=== PATIENT | female | born 1945 | race Caucasian/White ===

== ENCOUNTER 2022-07-24 17:37 | Observation (INO) | payer MEDICARE ==
[2022-07-24 18:12] LABS: #Basophils 0.1 thou/uL (0.0-0.2); #Eosinphils 0.4 thou/uL (0.0-0.7); #Lymphocytes 3.7 thou/uL (1.20-3.40); #Neutrophils 3.4 thou/uL (1.40-6.50); %Basophils 1.6 % (0.0-1.0); %Eosinophils 5.1 % (0.0-10.0); %Neutrophils 39.3 % (42.0-75.0); Hemoglobin 15.1 g/dL (12.0-16.0); Mean Corpuscular Hemoglobin 30.7 pg (27.0-31.0); Mean Corpuscular Volume 93.2 fl (78.0-98.0); Mean Platelet Volume 7.4 fL (7.4-10.4); Platelet Count 202 10x3/uL (130-400); RBC Distribution Width 13.3 % (11.5-14.5); Red Blood Cell (RBC) Count 4.92 mill/uL (4.20-5.40); White Blood Cell (WBC) Count 8.6 10x3/uL (4.8-10.8)
[2022-07-24 18:24] LABS: ALT (SGPT) 18 U/L (8-55); AST (SGOT) 37 U/L (5-34); Alkaline Phosphatase 73 U/L (40-110); Anion Gap 15 mmol/L (10-20); BUN (Urea Nitrogen) 14 mg/dL (9.8-20.1); Bilirubin, Total 0.5 mg/dL (0.2-1.2); Calc. Creatinine Clearance 0 mL/min (70-130); Calcium 9.3 mg/dL (7.8-10.44); Carbon Dioxide 29 mmol/L (23-31); Chloride 103 mmol/L (98-107); Estimated GFR 71; Globulin 3.3 g/dL (2.4-3.5); Glucose 108 mg/dL (83-110); Potassium 3.6 mmol/L (3.5-5.1); Protein, Total 7.3 g/dL (5.8-8.1); Sodium 143 mmol/L (136-145)
[2022-07-24 19:29] LABS: SARS-CoV-2 NAA Rapid Test Not Detected (NotDetected)
[2022-07-24] MEDS ORDERED: Oseltamivir 75 MG CAP ONE (20:01)
[2022-07-24] MEDS ORDERED: Acetaminophen 325 MG TAB ONE (20:01)
[2022-07-24] MEDS ORDERED: Dexamethasone 10 MG/ML VIAL ONE (20:01)
[2022-07-24] MEDS: Sodium Chloride 0.9% 1,000 ML IV SCH (21:15)
[2022-07-24] MEDS ORDERED: Ondansetron ODT 4 MG TAB SL PRN (21:45)
[2022-07-24] MEDS ORDERED: Ondansetron PF 4 MG/2 ML Vial IVP PRN (21:45)
[2022-07-24] MEDS ORDERED: Acetaminophen 325 MG TAB PO PRN (21:45)
[2022-07-24 22:22] VITALS: BMI 39.1
[2022-07-25] MEDS: Sodium Chloride 0.9% 1,000 ML IV SCH (03:14)
[2022-07-25] MEDS ORDERED: Levothyroxine Sodium 50 MCG TAB PO SCH (06:00)
[2022-07-25] MEDS ORDERED: Albuterol Sulfate 2.5 mg/3 ml Neb NEB PRN (07:34)
[2022-07-25] MEDS ORDERED: Carvedilol 3.125 MG TAB PO SCH (09:00)
[2022-07-25] MEDS ORDERED: Nystatin Powder 15 GM BOT TOP SCH (09:00)
[2022-07-25] MEDS ORDERED: Furosemide 20 MG TAB PO SCH (09:00)
[2022-07-25] MEDS ORDERED: Oseltamivir 75 MG CAP PO SCH (09:00)
[2022-07-25] MEDS ORDERED: Mometasone/Formoterol 60 PUFF AER INH SCH (09:00)
[2022-07-25] MEDS ORDERED: Potassium Chloride 20 MEQ TAB PO SCH (09:00)
[2022-07-25] MEDS ORDERED: Aspirin 81 mg Enteric Coated Tablet PO SCH (09:00)
[2022-07-25 15:33] VITALS: BP 107/70; TEMP 98.8
[2022-07-25] MEDS ORDERED: Donepezil HCl 10 MG TAB PO SCH (21:00)
[2022-07-25] MEDS ORDERED: Rosuvastatin 10 MG TAB PO SCH (21:00)
== END 2022-07-25 16:20 | disposition home or self-care (01) ==
LOC: BURERS 17:37 → INTOOBSV 20:04 → BURMED 20:04
PROVIDERS: ADMIT Family Medicine; ATTEND Nurse Practitioner
DX: R09.02 Hypoxemia (principal); J10.1 Influenza due to other identified influenza virus with other respiratory manifestations; J44.0 Chronic obstructive pulmonary disease with (acute) lower respiratory infection; J20.9 Acute bronchitis, unspecified; B37.2 Candidiasis of skin and nail; E03.9 Hypothyroidism, unspecified; E78.00 Pure hypercholesterolemia, unspecified; I10 Essential (primary) hypertension; I25.10 Atherosclerotic heart disease of native coronary artery without angina pectoris; Z87.891 Personal history of nicotine dependence; Z79.890 Hormone replacement therapy; Z79.82 Long term (current) use of aspirin; Z79.899 Other long term (current) drug therapy; Z88.0 Allergy status to penicillin; Z88.2 Allergy status to sulfonamides; Z20.822 Contact with and (suspected) exposure to COVID-19
CPT/HCPCS: 36415; 71045; 80053; 83605; 83880; 84484; 85025; 87040; 93005; 94664; 94760; 96374; G0378; J1100; J7050; J7620

== ENCOUNTER 2024-05-18 12:21 | Observation (INO) | payer MEDICARE ==
[~2024-05-18 12:21] MED LIST: Iopamidol 370 76% 100 ML VIAL ONE
[2024-05-18 12:46] LABS: #Basophils 0.1 thou/uL (0.0-0.2); #Eosinphils 0.3 thou/uL (0.0-0.7); #Lymphocytes 4.2 thou/uL (1.20-3.40); #Monocytes 0.6 thou/uL (0.11-0.59); #Neutrophils 5.7 thou/uL (1.40-6.50); %Basophils 0.9 % (0.0-1.0); %Eosinophils 2.7 % (0.0-10.0); %Lymphocytes 38.5 % (21.0-51.0); %Monocytes 5.9 % (0.0-10.0); %Neutrophils 51.9 % (42.0-75.0); Hematocrit 47.2 % (36.0-47.0); Hemoglobin 14.5 g/dL (12.0-16.0); Mean Corpuscular HGB CONC 30.8 g/dL (32.0-36.0); Mean Corpuscular Hemoglobin 29.2 pg (27.0-31.0); Mean Corpuscular Volume 94.9 fl (78.0-98.0); Platelet Count 211 10x3/uL (130-400); Red Blood Cell (RBC) Count 4.98 mill/uL (4.20-5.40); White Blood Cell (WBC) Count 10.9 10x3/uL (4.8-10.8)
[2024-05-18 12:57] LABS: PTT 29.3 sec (22.9-36.1)
[2024-05-18 13:08] LABS: ALT (SGPT) 17 U/L (8-55); AST (SGOT) 18 U/L (5-34); Albumin 3.4 g/dL (3.4-4.8); Alkaline Phosphatase 66 U/L (40-110); Anion Gap 16 mmol/L (10-20); BUN (Urea Nitrogen) 17 mg/dL (9.8-20.1); Bilirubin, Total 0.5 mg/dL (0.2-1.2); Calc. Creatinine Clearance 0 mL/min (70-130); Calcium 9.4 mg/dL (7.8-10.44); Carbon Dioxide 29 mmol/L (23-31); Chloride 100 mmol/L (98-107); Estimated GFR 68; Globulin 3.6 g/dL (2.4-3.5); Glucose 192 mg/dL (83-110); Lipase 43 U/L (8-78); Potassium 4.4 mmol/L (3.5-5.1); Sodium 141 mmol/L (136-145)
[2024-05-18 13:11] LABS: Troponin I Less than 0.010 ng/mL (< 0.028)
[2024-05-18 16:08] LABS: Troponin I Less than 0.010 ng/mL (< 0.028)
[2024-05-18 20:12] VITALS: BMI 45.6
[2024-05-18] MEDS ORDERED: Senokot S 8.6-50 MG TAB PO PRN (20:42)
[2024-05-18] MEDS ORDERED: Loperamide HCl 2 MG CAP PO PRN (20:42)
[2024-05-18] MEDS ORDERED: Acetaminophen 325 MG TAB PO PRN (20:42)
[2024-05-18] MEDS ORDERED: Ondansetron ODT 4 MG TAB PO PRN (20:42)
[2024-05-18] MEDS: Ondansetron PF 4 MG/2 ML Vial ONE (21:04)
[2024-05-18] MEDS: Ipratropium/Albuterol 3 ML NEB ONE (21:04)
[2024-05-18] MEDS: Morphine 2 MG/ML VIAL ONE (21:04)
[2024-05-18] MEDS: methylPREDNISolone Sod Succ/PF 125 MG/2 ML VIAL ONE (21:05)
[2024-05-18] MEDS: Carvedilol 3.125 MG TAB PO SCH (22:12)
[2024-05-18] MEDS: Famotidine 20 MG TAB PO SCH (22:12)
[2024-05-18] MEDS: Rosuvastatin 10 MG TAB PO SCH (22:13)
[2024-05-18] MEDS: Donepezil HCl 10 MG TAB PO SCH (22:13)
[2024-05-18] MEDS: Enoxaparin 40 MG (0.4 mL) SYRINGE SC SCH (22:13)
[2024-05-18] MEDS: methylPREDNISolone Sod Succ 40 MG VIAL IVP SCH (22:46)
[2024-05-18] MEDS: Albuterol 2.5 MG (3 mL) NEB NEB SCH (22:47)
[2024-05-19] MEDS: Ipratropium Bromide 2.5 ml Neb NEB SCH (00:57)
[2024-05-19] MEDS: HYDROcodone/Acetaminophen 5/325 mg Tablet PO PRN (02:45)
[2024-05-19 05:08] LABS: Hematocrit 43.6 % (36.0-47.0); Lymphocytes 19 % (21-51); MDiff Complete? YES; Mean Corpuscular HGB CONC 29.9 g/dL (32.0-36.0); Mean Corpuscular Hemoglobin 28.8 pg (27.0-31.0); Mean Corpuscular Volume 96.5 fl (78.0-98.0); Mean Platelet Volume 6.9 fL (7.4-10.4); Monocytes 2 % (0-10); Neutrophil 79 % (42-75); Platelet Count 187 10x3/uL (130-400); RBC Distribution Width 13.2 % (11.5-14.5); Red Blood Cell (RBC) Count 4.51 mill/uL (4.20-5.40); White Blood Cell (WBC) Count 10.3 10x3/uL (4.8-10.8)
[2024-05-19 05:30] LABS: Anion Gap 21 mmol/L (10-20); BUN (Urea Nitrogen) 21 mg/dL (9.8-20.1); Calc. Creatinine Clearance 82 mL/min (70-130); Calcium 8.8 mg/dL (7.8-10.44); Carbon Dioxide 22 mmol/L (23-31); Chloride 102 mmol/L (98-107); Estimated GFR 51; Glucose 364 mg/dL (83-110); Potassium 4.8 mmol/L (3.5-5.1); Sodium 140 mmol/L (136-145)
[2024-05-19] MEDS: Levothyroxine Sodium 50 MCG TAB PO SCH (05:38)
[2024-05-19] MEDS ORDERED: Glucagon 1 MG/ML KIT IM PRN (07:27)
[2024-05-19] MEDS ORDERED: Dextrose 50% Abboject 50 ML SYRINGE SLOW IVP PRN (07:27)
[2024-05-19] MEDS ORDERED: Dextrose 5% in Water 1,000 ML IV PRN (07:27)
[2024-05-19] MEDS ORDERED: Iopamidol 370 76% 100 ML VIAL ONE (07:57)
[2024-05-19] MEDS: Cyanocobalamin (Vitamin B-12) 1,000 MCG TAB PO SCH (08:09)
[2024-05-19] MEDS: Furosemide 20 MG TAB PO SCH (08:09)
[2024-05-19] MEDS: Aspirin 81 mg Enteric Coated Tablet PO SCH (08:09)
[2024-05-19] MEDS: Losartan 25 MG TAB PO SCH (08:09)
[2024-05-19] MEDS: Potassium Chloride 20 MEQ TAB PO SCH (08:10)
[2024-05-19] MEDS: Cholecalciferol (Vitamin D3) 5,000 UNITS CAPSULE PO SCH (10:36)
[2024-05-19] MEDS: Sodium Chloride 0.9% 1,000 ML IV SCH (10:38)
[2024-05-19] MEDS: HumaLOG 300 UNITS/3 ML VIAL SC PRN (11:32)
[2024-05-19 12:12] LABS: Hemoglobin A1c 6.7 % (4.0-6.0)
[2024-05-19 17:14] VITALS: BP 130/64
[2024-05-19 18:51] VITALS: TEMP 98
[2024-05-22] MEDS ORDERED: FLU (Fluad Triv) TS24-25 (65UP)/MF59C/PF 45 MCG/0.5 ML Syringe IM ONE (01:15)
== END 2024-05-19 18:40 | disposition home or self-care (01) ==
LOC: BURERS 12:21 → BURMED 18:25
PROVIDERS: ADMIT Family Medicine; ATTEND Family Medicine
DX: R09.02 Hypoxemia (principal); J44.9 Chronic obstructive pulmonary disease, unspecified; R10.12 Left upper quadrant pain; I11.0 Hypertensive heart disease with heart failure; I50.9 Heart failure, unspecified; R73.9 Hyperglycemia, unspecified; E03.9 Hypothyroidism, unspecified; E78.5 Hyperlipidemia, unspecified; I25.10 Atherosclerotic heart disease of native coronary artery without angina pectoris; F03.90 Unspecified dementia, unspecified severity, without behavioral disturbance, psychotic disturbance, mood disturbance, and anxiety; Z90.49 Acquired absence of other specified parts of digestive tract; Z90.89 Acquired absence of other organs; Z95.5 Presence of coronary angioplasty implant and graft; Z96.653 Presence of artificial knee joint, bilateral; Z79.899 Other long term (current) drug therapy; Z79.82 Long term (current) use of aspirin; Z79.890 Hormone replacement therapy
CPT/HCPCS: 71045; 71275; 74177; 80048; 82962 ×2; 83036; 83690; 84484 ×2; 85025; 85379; 85610; 85730; 87428; 94640 ×2; 96374; 96375; 96376; 99285; G0378 ×2; J1650; J2272; J2405; J2919 ×3; J7030; J7644; Q9967 ×2; 36415; 36416; 80053; 84443; J1815; J7611; J7620

== ENCOUNTER 2025-03-24 19:35 | Emergency (ER) | payer MEDICARE ==
[2025-03-24] MEDS ORDERED: Clindamycin 150 MG CAP ONE (20:29)
[2025-03-24 20:39] LABS: INR-International Normal Ratio 1.0; Prothrombin Time 13.6 sec (12.0-14.7)
[2025-03-24 20:43] LABS: Hematocrit 38.9 % (36.0-47.0); Hemoglobin 13.2 g/dL (12.0-16.0); Mean Corpuscular Hemoglobin 30.3 pg (27.0-31.0); Mean Corpuscular Volume 89.2 fl (78.0-98.0); Platelet Count 204 10x3/uL (130-400); Red Blood Cell (RBC) Count 4.36 mill/uL (4.20-5.40); White Blood Cell (WBC) Count 8.9 10x3/uL (4.8-10.8)
[2025-03-24 20:48] LABS: ALT (SGPT) 14 U/L (Less than 34); AST (SGOT) 22 U/L (11-34); Albumin 3.4 g/dL (3.1-4.5); Alkaline Phosphatase 50 U/L (40-110); Anion Gap 17 mmol/L (10-20); BUN (Urea Nitrogen) 23 mg/dL (9.8-20.1); Bilirubin, Total 0.3 mg/dL (0.3-1.2); Calc. Creatinine Clearance 0 mL/min (70-130); Calcium 9.0 mg/dL (7.8-10.44); Carbon Dioxide 24 mmol/L (23-31); Chloride 106 mmol/L (98-107); Globulin 3.1 g/dL (2.4-3.5); Glucose 160 mg/dL (83-110); MDiff Complete? YES; Potassium 4.2 mmol/L (3.5-5.1); Sodium 143 mmol/L (136-145)
== END 2025-03-24 22:25 | disposition short-term general hospital (02) ==
LOC: BURERS 19:35
DX: L03.115 Cellulitis of right lower limb (principal); I11.0 Hypertensive heart disease with heart failure; I50.9 Heart failure, unspecified; E03.9 Hypothyroidism, unspecified; E78.00 Pure hypercholesterolemia, unspecified; J44.9 Chronic obstructive pulmonary disease, unspecified; E11.9 Type 2 diabetes mellitus without complications; Z03.89 Encounter for observation for other suspected diseases and conditions ruled out; Z87.891 Personal history of nicotine dependence; Z79.84 Long term (current) use of oral hypoglycemic drugs; Z79.899 Other long term (current) drug therapy; Z79.51 Long term (current) use of inhaled steroids; Z79.890 Hormone replacement therapy
CPT/HCPCS: 36415; 80053; 85025; 85610; 99284

== ENCOUNTER 2025-07-01 12:23 | Inpatient (IN) | payer MEDICARE ==
[2025-07-01] MEDS ORDERED: Albuterol 200 PUFF (6.7GM INHALER) INH PRN (13:32)
[2025-07-01] MEDS ORDERED: Calcium Carbonate 500 MG ChewTAB PO PRN (13:36)
[2025-07-01] MEDS: Rosuvastatin 10 MG TAB PO SCH (20:28)
[2025-07-01] MEDS: Gabapentin 100 MG CAP PO SCH (20:29)
[2025-07-01] MEDS: Mometasone 100 MCG/Formoterol 5 MCG 60 PUFF AEROSOL INH SCH (20:30)
[2025-07-01] MEDS: Acetaminophen 325 MG TAB PO PRN (20:30)
[2025-07-02] MEDS: Senokot S 8.6-50 MG TAB PO PRN (04:38)
[2025-07-02 05:04] LABS: Hematocrit 42.7 % (36.0-47.0); Hemoglobin 13.9 g/dL (12.0-16.0); MDiff Complete? YES; Mean Corpuscular Hemoglobin 29.9 pg (27.0-31.0); Mean Corpuscular Volume 91.7 fl (78.0-98.0); Platelet Adequacy Comment Appears Adequate; Platelet Count 174 10x3/uL (130-400); Red Blood Cell (RBC) Count 4.65 mill/uL (4.20-5.40); White Blood Cell (WBC) Count 8.4 10x3/uL (4.8-10.8)
[2025-07-02 05:15] LABS: ALT (SGPT) 9 U/L (Less than 34); AST (SGOT) 18 U/L (11-34); Albumin 3.4 g/dL (3.1-4.5); Alkaline Phosphatase 42 U/L (40-110); Anion Gap 15 mmol/L (10-20); BUN (Urea Nitrogen) 21 mg/dL (9.8-20.1); Bilirubin, Total 0.7 mg/dL (0.3-1.2); Calc. Creatinine Clearance 105 mL/min (70-130); Calcium 8.9 mg/dL (7.8-10.44); Carbon Dioxide 27 mmol/L (23-31); Chloride 103 mmol/L (98-107); Globulin 2.8 g/dL (2.4-3.5); Glucose 108 mg/dL (83-110); Potassium 4.1 mmol/L (3.5-5.1); Sodium 141 mmol/L (136-145)
[2025-07-02] MEDS: Nystatin Powder 15 GM BOT TOP SCH (09:36)
[2025-07-02] MEDS: Dapagliflozin Propanediol 10 MG TAB PO SCH (09:38)
[2025-07-02] MEDS: Aspirin 81 mg Enteric Coated Tablet PO SCH (09:38)
[2025-07-02] MEDS: Metoprolol Succinate XL 25 MG ER.TAB PO SCH (09:38)
[2025-07-02] MEDS: metFORMIN 500 MG TAB PO SCH (09:38)
[2025-07-02] MEDS: Cyanocobalamin (Vitamin B-12) 1,000 MCG TAB PO SCH (09:38)
[2025-07-02] MEDS: Famotidine 20 MG TAB PO SCH (09:58)
[2025-07-02] MEDS: Enoxaparin 40 MG (0.4 mL) SYRINGE SC SCH ×3 (10:58→20:56)
[2025-07-03] MEDS: FLU (Fluad Triv) 25-26 (65UP)PF 45 MCG/0.5 ML Syringe IM ONE (08:30)
[2025-07-04] MEDS: Furosemide 40 MG TAB PO SCH (12:39)
[2025-07-05] MEDS: Furosemide 40 MG TAB PO SCH (08:43)
[2025-07-10 05:56] LABS: #Basophils 0.1 thou/uL (0.0-0.2); #Eosinophils 0.3 thou/uL (0.0-0.7); #Lymphocytes 2.7 thou/uL (1.20-3.40); #Monocytes 0.5 thou/uL (0.11-0.59); #Neutrophils 4.5 thou/uL (1.40-6.50); %Basophils 0.7 % (0.0-1.0); %Eosinophils 3.8 % (0.0-10.0); %Lymphocytes 33.2 % (21.0-51.0); %Monocytes 6.5 % (0.0-10.0); %Neutrophils 55.8 % (42.0-75.0); Hematocrit 43.8 % (36.0-47.0); Hemoglobin 13.4 g/dL (12.0-16.0); Mean Corpuscular Hemoglobin 29.2 pg (27.0-31.0); Mean Corpuscular Volume 95.2 fl (78.0-98.0); Platelet Count 200 10x3/uL (130-400); Red Blood Cell (RBC) Count 4.60 mill/uL (4.20-5.40); White Blood Cell (WBC) Count 8.0 10x3/uL (4.8-10.8)
[2025-07-10 06:14] LABS: ALT (SGPT) 11 U/L (Less than 34); AST (SGOT) 18 U/L (11-34); Albumin 3.2 g/dL (3.1-4.5); Alkaline Phosphatase 45 U/L (40-110); Anion Gap 16 mmol/L (10-20); BUN (Urea Nitrogen) 17 mg/dL (9.8-20.1); Bilirubin, Total 0.5 mg/dL (0.3-1.2); Calc. Creatinine Clearance 107 mL/min (70-130); Calcium 8.9 mg/dL (7.8-10.44); Carbon Dioxide 28 mmol/L (23-31); Chloride 101 mmol/L (98-107); Globulin 3.1 g/dL (2.4-3.5); Glucose 106 mg/dL (83-110); Potassium 3.4 mmol/L (3.5-5.1); Sodium 142 mmol/L (136-145)
[2025-07-10] MEDS: Enoxaparin 40 MG (0.4 mL) SYRINGE SC SCH (09:00)
[2025-07-11 09:03] VITALS: BMI 47.0
[2025-07-12 05:09] VITALS: BMI 46.9
[2025-07-13 05:14] LABS: Anion Gap 17 mmol/L (10-20); BUN (Urea Nitrogen) 19 mg/dL (9.8-20.1); Calc. Creatinine Clearance 109 mL/min (70-130); Calcium 8.9 mg/dL (7.8-10.44); Carbon Dioxide 29 mmol/L (23-31); Chloride 102 mmol/L (98-107); Glucose 106 mg/dL (83-110); Potassium 3.7 mmol/L (3.5-5.1); Sodium 144 mmol/L (136-145)
[2025-07-15 13:16] VITALS: BP 124/80; TEMP 98.6
== END 2025-07-15 13:45 | disposition home or self-care (01) | DRG 946 ==
LOC: BURMED 12:54
PROVIDERS: ADMIT Family Medicine; ATTEND Family Medicine
PROC: F07Z9ZZ Gait Training/Functional Ambulation Treatment (ICD-10-PCS; principal; 2025-07-01)
DX: R53.1 Weakness (principal); E03.9 Hypothyroidism, unspecified; J44.9 Chronic obstructive pulmonary disease, unspecified; I25.10 Atherosclerotic heart disease of native coronary artery without angina pectoris; Z96.653 Presence of artificial knee joint, bilateral; F03.90 Unspecified dementia, unspecified severity, without behavioral disturbance, psychotic disturbance, mood disturbance, and anxiety; I50.9 Heart failure, unspecified; E11.42 Type 2 diabetes mellitus with diabetic polyneuropathy; Z85.3 Personal history of malignant neoplasm of breast; Z90.49 Acquired absence of other specified parts of digestive tract; Z98.890 Other specified postprocedural states; Z79.82 Long term (current) use of aspirin; Z79.899 Other long term (current) drug therapy; Z79.84 Long term (current) use of oral hypoglycemic drugs; Z79.52 Long term (current) use of systemic steroids; Z79.890 Hormone replacement therapy
CPT/HCPCS: 36415; 80048; 80053; 85025; 94640; 94664; J1650

== ENCOUNTER 2025-08-02 21:09 | Emergency (ER) | payer MEDICARE ==
[2025-08-02 22:17] LABS: #Basophils 0.1 thou/uL (0.0-0.2); #Eosinophils 0.3 thou/uL (0.0-0.7); #Lymphocytes 3.0 thou/uL (1.20-3.40); #Monocytes 0.7 thou/uL (0.11-0.59); #Neutrophils 6.3 thou/uL (1.40-6.50); %Basophils 0.7 % (0.0-1.0); %Eosinophils 2.5 % (0.0-10.0); %Lymphocytes 29.6 % (21.0-51.0); %Monocytes 6.5 % (0.0-10.0); %Neutrophils 60.8 % (42.0-75.0); Hematocrit 47.7 % (36.0-47.0); Hemoglobin 14.7 g/dL (12.0-16.0); Mean Corpuscular Hemoglobin 29.1 pg (27.0-31.0); Mean Corpuscular Volume 94.5 fl (78.0-98.0); Platelet Count 216 10x3/uL (130-400); Red Blood Cell (RBC) Count 5.05 mill/uL (4.20-5.40); White Blood Cell (WBC) Count 10.3 10x3/uL (4.8-10.8)
[2025-08-02 22:35] LABS: ALT (SGPT) 10 U/L (Less than 34); AST (SGOT) 19 U/L (11-34); Albumin 3.7 g/dL (3.1-4.5); Alkaline Phosphatase 46 U/L (40-110); Anion Gap 17 mmol/L (10-20); BUN (Urea Nitrogen) 21 mg/dL (9.8-20.1); Bilirubin, Total 0.6 mg/dL (0.3-1.2); Calc. Creatinine Clearance 0 mL/min (70-130); Calcium 9.1 mg/dL (7.8-10.44); Carbon Dioxide 24 mmol/L (23-31); Chloride 107 mmol/L (98-107); Globulin 3.4 g/dL (2.4-3.5); Glucose 120 mg/dL (83-110); Potassium 4.1 mmol/L (3.5-5.1); Sodium 144 mmol/L (136-145)
[2025-08-02 22:37] LABS: Troponin I 0.021 ng/mL (< 0.028)
[2025-08-02] MEDS ORDERED: Furosemide 40 MG TAB ONE (23:14)
[2025-08-02] MEDS ORDERED: predniSONE 20 MG TAB ONE (23:15)
== END 2025-08-02 23:12 | disposition home or self-care (01) ==
LOC: BURERS 21:09
DX: J22 Unspecified acute lower respiratory infection (principal); E11.9 Type 2 diabetes mellitus without complications; I11.0 Hypertensive heart disease with heart failure; I50.9 Heart failure, unspecified; E03.9 Hypothyroidism, unspecified; E78.00 Pure hypercholesterolemia, unspecified; J44.9 Chronic obstructive pulmonary disease, unspecified; Z79.51 Long term (current) use of inhaled steroids; Z87.891 Personal history of nicotine dependence; Z79.890 Hormone replacement therapy; Z79.84 Long term (current) use of oral hypoglycemic drugs
CPT/HCPCS: 36415; 71045; 80053; 83880; 84484; 85025; 93005; J7512